=== PATIENT | female | born 1950 | race Caucasian/White ===

== ENCOUNTER 2021-04-07 20:51 | Outpatient (CLI) | payer MEDICARE, OTHER | END 2021-04-07 20:52 | disposition critical access hospital (66) | LOC: EMS 20:51 | DX: R10.9 Unspecified abdominal pain (principal); R11.2 Nausea with vomiting, unspecified; R19.7 Diarrhea, unspecified; R51.9 Headache, unspecified; R53.1 Weakness | CPT/HCPCS: A0425; A0427 ==

== ENCOUNTER 2021-04-07 21:24 | Emergency (ER) | payer MEDICARE, OTHER ==
[2021-04-07] MEDS ORDERED: diazePAM INJ 5 MG/ML SYRINGE IVP STA (22:02)
[2021-04-07] MEDS ORDERED: ONDANSETRON 4 MG/2 ML VIAL IVP STA (22:02)
[2021-04-07] MEDS ORDERED: SODIUM CHLORIDE 0.9% 1,000 ML IV STA (22:02)
[2021-04-07 22:26] LABS: BASOPHILS % (AUTO) 0.4 %; EOSINOPHILS % (AUTO) 0.4 %; HCT - HEMATOCRIT 38.8 % (37.0-47.0); HGB - HEMOGLOBIN 13.6 g/dL (12.0-16.0); LYMPHOCYTES # (AUTO) 1.6 10^3/uL (1.5-3.5); LYMPHOCYTES % (AUTO) 13.9 %; MEAN CORPUSCULAR HEMOGLOBIN 33.8 pg (27.0-31.0); MEAN CORPUSCULAR HGB CONC 35.1 g/dL (32.0-36.0); MEAN CORPUSCULAR VOLUME 96.5 fL (81.0-99.0); MEAN PLATELET VOLUME 9.9 fL (7.9-10.8); MONOCYTES # (AUTO) 0.6 10^3/uL (0.0-1.0); MONOCYTES % (AUTO) 5.3 %; NEUTROPHILS % (AUTO) 79.5 %; PLT - PLATELET COUNT 202 10^3/uL (130-450); RED BLOOD COUNT 4.02 10^6/uL (4.20-5.40); RED CELL DISTRIBUTION WIDTH 11.2 % (12.0-15.0); WHITE BLOOD COUNT 11.3 x10^3/uL (4.8-10.8)
[2021-04-07] MEDS ORDERED: IOPAMIDOL-300 100 ML VIAL ONE (22:36)
[2021-04-07 22:38] LABS: ALBUMIN 4.6 g/dL (3.2-5.5); ALBUMIN/GLOBULIN RATIO 2.1 (1.0-2.2); BILIRUBIN,TOTAL 1.1 mg/dL (0.2-1.0); CALCIUM 8.4 mg/dL (8.5-10.3); CREATININE 0.8 mg/dL (0.4-1.0); POTASSIUM 3.4 mmol/L (3.5-5.0); TOTAL PROTEIN 6.8 g/dL (6.7-8.2)
[2021-04-07] MEDS ORDERED: IOPAMIDOL-300 100 ML VIAL IVP ONE (23:28)
--- NOTE | 2021-04-08 00:25 | ED Physician Documentation ---
History of Present Illness - Stated complaint Stated Complaint: ABD PAIN, N/V - Chief complaint Chief Complaint: Abd Pain - History obtained from History obtained from: Patient - Additonal information Additional information: Patient comes emergency department chief complaint of Headache,vertigo and severe nausea. Patient states that she was out for a walk with her when the symptoms started. She states she Developed a headache, and suddenly began to feel as though things were spinning and that she had to be helped back home. She states that a very strong sense of nausea that accompanied this, and that currently, she cannot open her eyes because it makes her dizziness worse. Patient denies any focal weakness. No sensory loss. She states that she can see but that she just feels extremely dizzy. Patient denies any sense of lightheadedness. No chest pain or shortness of breath. No palpitations. Patient states that she has a history of benign positional vertigo, but that this feels different and that it is not relieved by turning her head and the vertigo and nausea are both much more severe. Patient denies any other complaints at this time. Review of Systems Ten Systems: 10 systems reviewed and negative Constitutional: reports: Reviewed and negative Eyes: reports: Reviewed and negative Ears: reports: Reviewed and negative Nose: reports: Reviewed and negative Throat: reports: Reviewed and negative Cardiac: reports: Reviewed and negative Respiratory: reports: Reviewed and negative GI: reports: Nausea, Vomiting, Reviewed and negative : reports: Reviewed and negative Skin: reports: Reviewed and negative Musculoskeletal: reports: Reviewed and negative Neurologic: reports: Headache Psychiatric: reports: Reviewed and negative Endocrine: reports: Reviewed and negative Immunocompromised: reports: Reviewed and negative PD PAST MEDICAL HISTORY - Past Medical History Past Medical History: No - Past Surgical History Past Surgical History: No - Present Medications Home Medications: Ambulatory Orders Medication Instructions Recorded Confirmed Meclizine [Antivert] 25 mg PO Q6H PRN #15 tablet 04/08/21 Ondansetron Odt [Zofran] 4 mg TL Q6H PRN #10 tablet 04/08/21 - Allergies Allergies/Adverse Reactions: Allergies Allergy/AdvReac Type Severity Reaction Status Date / Time No Known Drug Allergies Allergy Verified 04/07/21 21:39 - Social History Does the pt smoke?: No Smoking Status: Never smoker Does the pt drink ETOH?: No Does the pt have substance abuse?: No - Immunizations Immunizations are current?: Yes - POLST Patient has POLST: No PD ED PE NORMAL - Vitals Vital signs reviewed: Yes - General General: Alert and oriented X 3, Well developed/nourished, Other (Patient sitting with eyes closed, appearing uncomfortable but otherwise no apparent distress) - HEENT HEENT: Atraumatic, PERRL, EOMI, Moist mucous membranes - Neck Neck: Supple, no meningeal sign - Cardiac Cardiac: RRR, No murmur, Strong equal pulses - Respiratory Respiratory: No respiratory distress, Clear bilaterally - Abdomen Abdomen: Soft, Non tender, Non distended - Derm Derm: Normal color, Warm and dry, No rash - Extremities Extremities: No deformity, No edema - Neuro Neuro: Alert and oriented X 3, 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, No motor deficit, No sensory deficit, Normal speech - Psych Psych: Normal mood, Normal affect Results - Vitals Vitals: Vital Signs - 24 hr 04/07/21 04/07/21 04/08/21 21:28 22:30 00:42 Temperature 35.8 C L 36.2 C L 36.4 C L Heart Rate 64 61 61 Respiratory 16 14 16 Rate Blood Pressure 145/60 H 123/44 L 126/60 O2 Saturation 100 96 98 Oxygen O2 Source Room air - Labs Labs: Laboratory Tests 04/07/21 04/07/21 22:15 22:15 WBC 11.3 H RBC 4.02 L Hgb 13.6 Hct 38.8 MCV 96.5 MCH 33.8 H MCHC 35.1 RDW 11.2 L Plt Count 202 MPV 9.9 Neut # (Auto) 9.0 H Lymph # (Auto) 1.6 [place] # (Auto) 0.6 Eos # (Auto) 0.0 Baso # (Auto) 0.0 Absolute Nucleated RBC 0.00 Nucleated RBC % 0.0 Sodium 136 Potassium 3.4 L Chloride 104 Carbon Dioxide 22 Anion Gap 10.0 BUN 15 Creatinine 0.8 Estimated GFR (MDRD) 71 L Glucose 131 H Calcium 8.4 L Total Bilirubin 1.1 H AST 22 ALT 17 Alkaline Phosphatase 47 Total Protein 6.8 Albumin 4.6 Globulin 2.2 Albumin/Globulin Ratio 2.1 Lipase 32 - Rads (name of study) CT/CTA head & neck Radiology: Final report received, EMP read indepedently, See rad report (neg) PD MEDICAL DECISION MAKING - ED course Complexity details: reviewed results, re-evaluated patient, considered differ ential, d/w patient ED course: The patient was insisted that this episode felt different than her prior benign positional vertigo episodes, and so she was worked up for potential stroke also with CT angiogram of the head and neck. The patient's labs were normal and she was found to be feeling better after IV fluids, Zofran, and Valium. The head and neck CTs were unremarkable. I discussed with the patient symptomatic management at home with Zofran and meclizine, and we have discussed the usual indications for return. Departure - Departure Disposition: Home, Self Care Clinical Impression: Vertigo Condition: Stable Instructions: ED BPV Vertigo Prescriptions: Meclizine [Antivert] 25 mg PO Q6H PRN #15 tablet PRN Reason: Dizziness Ondansetron Odt [Zofran] 4 mg TL Q6H PRN #10 tablet PRN Reason: Nausea / Vomiting Comments: You were evaluated for potential stroke tonight, given that you reported your symptoms seem different than last time and more severe. The CT scans of your head and neck vasculature are normal, which is reassuring. You most likely have benign peripheral vertigo, which can cause severe symptoms, but does not originate from a serious cause. You may take the medication for nausea and for dizziness as needed. Please follow-up with your primary care physician if symptoms continue for more than the next 2 weeks. Discharge Date/Time: 04/08/21 01:14
[2021-04-08 00:43] VITALS: BP 126/60
--- NOTE | 2021-04-08 08:11 | CT Report ---
PROCEDURE: ANGIO HEAD W/WO INDICATIONS: L sided facial droop CONTRAST: IV CONTRAST: Isovue 300 ml: 80 PO CONTRAST: *NO PO CONTRAST TECHNIQUE: Precontrast 4.5 mm thick angled axial sections acquired from the foramen magnum to the vertex. Afte r the administration of intravenous contrast, 1 mm thick sections acquired through the [place] of [place] is. Postcontrast 4.5 mm thick sections then re-acquired from the foramen magnum to the vertex. 3-di mensional jrxwjys-kmadaahon-ivtowfekne (MIP) and/or volume rendering reformats were acquired of the c entral intracranial vasculature. For radiation dose reduction, the following was used: automated ex posure control, adjustment of mA and/or kV according to patient size. COMPARISON: None FINDINGS: Image quality: Excellent. Anterior circulation: Intracranial internal carotid arteries are normal in size and flow. The flow within the paired anterior cerebral arteries is normal and symmetric. The flow within the middle cer ebral arteries is normal and symmetric. The anterior communicating artery is seen. No aneurysms are seen. Posterior circulation: Visualized portions of the vertebral arteries demonstrate normal caliber, and join to form a normal appearing basilar artery. Flow within the posterior cerebral arteries is norm al and symmetric. No aneurysms are seen. Left vertebral artery dominance is present. CSF spaces: Ventricles are normal in size and shape. Basal cisterns are patent. No extra-axial flu id collections. Brain: No midline shift. No intracranial bleeds or masses. Y[place]-white matter interface appears int act. Skull and face: Calvarium and facial bones appear intact, without suspicious lesions. Sinuses: Visualized sinuses and mastoids are clear. IMPRESSION: 1. No acute intracranial process. 2. No areas of hemodynamically significant stenosis, vascular occlusion or aneurysmal dilation within the anterior or posterior circulation. Reviewed by: Shelby Guzman MD on 04/08/2021 8:10 AM PDT Approved by: Shelby Guzman MD on 04/08/2021 8:10 AM PDT Station ID: [id number]
== END 2021-04-08 01:14 | disposition home or self-care (01) ==
LOC: ED 21:24 → EDBD 21:24 → ED 04-08 01:14
DX: R42 Dizziness and giddiness (principal)
CPT/HCPCS: 36415; 70496; 80053; 83690; 85025; 96372; 99284; Q9967